=== PATIENT | female | born 1980 | race Caucasian/White ===

== ENCOUNTER 2021-03-24 11:20 | Emergency (ER) | payer SELFPAY ==
[~2021-03-24] VITALS: Ht 160 cm; Wt 69.6 kg
--- NOTE | 2021-03-24 11:50 | NUR ---
PT CAME IN CO PAIN BEHIND HER RIGHT KNEE. PT REPORTS SHE RECENTLY STARTED A NEW CONTROL AND IN CONCERNED ABOUT DVTs. PT ASLO REPORTS SHES BEEN HAVIN CP ON BOTH SIDES OF HER CHEST THAT COMES AND GOES. EKG COMPLETED. CONNECTED TO ALL MONITORS. BLANKET PROVIDED
[2021-03-24 12:25] LABS: BASOPHILS % (AUTO) 1 % (0-1); EOSINOPHILS % (AUTO) 2 % (1-7); LYMPHOCYTES % (AUTO) 37 % (22-44); MEAN CORPUSCULAR HEMOGLOBIN 30.6 pg (27.0-34.8); MEAN CORPUSCULAR HGB CONC 34.5 g/dL (32.4-35.8); MEAN PLATELET VOLUME 8.3 fL (7.4-10.4); MONOCYTES % (AUTO) 7 % (2-9); NEUTROPHILS % (AUTO) 53 % (42-75); PLATELET COUNT 267 x10^3/uL (130-400); RED BLOOD COUNT 4.57 x10^6/uL (3.82-5.3); RED CELL DISTRIBUTION WIDTH 12.7 % (9.6-15.2)
[2021-03-24 12:36] LABS: ALBUMIN 3.7 g/dL (3.4-5.0); ANION GAP 5 mmol/L (5-15); CALCIUM 8.4 mg/dL (8.5-10.1); CHLORIDE 110 mmol/L (98-107); CREATININE 0.88 mg/dL (0.55-1.02)
[2021-03-24 12:50] VITALS: BP 114/72
== END 2021-03-24 14:30 | disposition home or self-care (01) ==
LOC: ED 14:24
DX: M25.561 Pain in right knee (principal); R94.31 Abnormal electrocardiogram [ECG] [EKG]
CPT/HCPCS: 36415; 71045; 80048; 82040; 85025; 85379; 93005; 99285